=== PATIENT | male | born 1965 | race African-American/Black ===

== ENCOUNTER 2018-01-09 19:34 | Emergency (ER) | payer OTHER ==
[~2018-01-09] VITALS: Ht 172.7 cm; Wt 68.0 kg
[2018-01-09 19:58] VITALS: BP 117/65
== END 2018-01-10 01:22 | disposition left against medical advice (07) ==
LOC: ER 19:34
DX: R68.83 Chills (without fever) (principal); Z53.21 Procedure and treatment not carried out due to patient leaving prior to being seen by health care provider